=== PATIENT | female | born 1960 | race Caucasian/White ===

== ENCOUNTER 2019-08-31 14:47 | Outpatient (CLI) | payer OTHER ==
[2016-07-13 00:34] VITALS: BP 172/108
--- NOTE | 2019-08-31 16:05 | Diagnostic Imaging Report ---
PATIENT MR#: [id number] PATIENT PATIENT NAME: MOSES MORALES DATE OF : 1960 REFERRING PHYSICIAN: Marcella Belcher EXAM DATE: 08/31/2019 ACCESSION NUMBER: [id number] EXAM DESCRIPTION: C SPINE 4 VIEWS OR MORE HISTORY: CHRONIC BACK/NECK PAIN WITH LEFT SIDED NUMBNESS AND TINGLING COMPARISON: No relevant comparison is available at the time of interpretation. C-SPINE XRAY, 5 views including obliques: Vertebral bodies: Generalized osteopenia. No compression deformities. The dens is intact and the late ral masses are symmetric. Disc spaces: Mild-moderate degenerative disc disease at C3-4, C4-5 and C5-6. Alignment: Normal cervical lordosis without listhesis. Neural foramina: Right neural foraminal stenosis at C3-4 and C4-5. Left neural foraminal stenosis at C4-5 and C5-6. IMPRESSION: 1. Generalized osteopenia without compression fracture. 2. Mild degenerative disc disease at C4-5 and C5-6. 3. Neural foraminal stenosis at C3-4, C4-5 and C5-6, as described above. Read by: Dr. Wesley Sarmiento Transcribed by: Wesley Sarmiento Transcribed Date: 08/31/2019 4:04:17 PM Electronically signed by: Dr. Wesley Sarmiento Date signed: 08/31/2019 4:04:51 PM
--- NOTE | 2019-08-31 16:08 | Diagnostic Imaging Report ---
PATIENT MR#: [id number] PATIENT PATIENT NAME: MOSES MORALES DATE OF : 1960 REFERRING PHYSICIAN: Marcella Belcher EXAM DATE: 08/31/2019 ACCESSION NUMBER: [id number] EXAM DESCRIPTION: T SPINE 3 VIEWS HISTORY: CHRONIC BACK/NECK PAIN WITH LEFT SIDED NUMBNESS AND TINGLING. COMPARISON: No relevant comparison is available at the time of interpretation. T-SPINE XRAY, 3 Views: Vertebral bodies: Generalized osteopenia. No compression deformities. Disc spaces: Moderate thoracic disc spondylosis of the upper and mid thoracic levels. Alignment: Minimal thoracic levocurvature. Normal thoracic kyphosis without listhesis. IMPRESSION: Moderate upper thoracic disc spondylosis. Read by: Dr. Wesley Sarmiento Transcribed by: Wesley Sarmiento Transcribed Date: 08/31/2019 4:07:02 PM Electronically signed by: Dr. Wesley Sarmiento Date signed: 08/31/2019 4:07:48 PM
--- NOTE | 2019-08-31 16:23 | Diagnostic Imaging Report ---
PATIENT MR#: [id number] PATIENT PATIENT NAME: MOSES MORALES DATE OF : 1960 REFERRING PHYSICIAN: Marcella Belcher EXAM DATE: 08/31/2019 ACCESSION NUMBER: [id number] EXAM DESCRIPTION: L SPINE 4 VIEWS CLINICAL HISTORY: CHRONIC BACK/NECK PAIN WITH LEFT SIDED NUMBNESS AND TINGLING COMPARISON: No relevant comparison is available at the time of interpretation. L-SPINE XRAY, 5 views including obliques: Vertebral bodies: No compression deformities. Transitional S1 vertebra. Disc spaces: Mild posterior disc narrowing at L1-2, L2-3 and L3-4. Alignment: Mild lumbar dextrocurvature. Normal lumbar lordosis without listhesis. Facets: Degenerative arthrosis at L4-5 and L5-S1. Large facet osteophyte at L5-S1 on the left. IMPRESSION: 1. Transitional S1 vertebra. 2. Lower lumbar facet arthrosis, most pronounced at L5-S1 on the left, with large osteophyte formatio n, which may produce neural foraminal encroachment. Read by: Dr. Wesley Sarmiento Transcribed by: Wesley Sarmiento Transcribed Date: 08/31/2019 4:22:27 PM Electronically signed by: Dr. Wesley Sarmiento Date signed: 08/31/2019 4:22:27 PM
== END 2019-08-31 14:57 ==
LOC: RAD 14:47
PROVIDERS: ATTEND Nurse Practitioner Family
DX: M54.2 Cervicalgia (principal); M54.5 Low back pain; M54.6 Pain in thoracic spine
CPT/HCPCS: 72050; 72072; 72110

== ENCOUNTER 2019-09-06 13:41 | Outpatient (CLI) | payer OTHER ==
[2016-07-13 00:34] VITALS: BP 172/108
--- NOTE | 2019-09-06 14:49 | Diagnostic Imaging Report ---
PATIENT MR#: [id number] PATIENT PATIENT NAME: MOSES MORALES DATE OF : 1960 REFERRING PHYSICIAN: Marcella Belcher EXAM DATE: 09/06/2019 ACCESSION NUMBER: [id number] EXAM DESCRIPTION: US THYROID SOFT TISS HEAD/NCK Exam: Thyroid ultrasound. History: Hypothyroidism. Real-time grayscale imaging of the thyroid gland is performed. The right lobe measures 3.3 x 1.8 x 1.2 cm. The left lobe measures 3.6 x 1.3 x 1.2 cm. The isthmus measures 1.9 mm in with. Both lobes are heterogeneous in echotexture. Complex nodule in the left lobe measures 9.4 x 4 .8 mm in greatest diameter. Hypoechogenic nodule in the upper pole of the right lobe measures 1.1 cm in length. Impression: Heterogeneous appearing thyroid gland with multiple nodules identified. Read by: Dr. Bo Rokc Transcribed by: Transcribed Date: Electronically signed by: Dr. Bo Rock Date signed: 09/06/2019 2:48:24 PM
== END 2019-09-06 13:51 ==
LOC: RAD 13:41
PROVIDERS: ATTEND Nurse Practitioner Family
DX: E03.9 Hypothyroidism, unspecified (principal)
CPT/HCPCS: 76536

== ENCOUNTER 2019-10-03 13:02 | Outpatient (CLI) | payer OTHER ==
[2016-07-13 00:34] VITALS: BP 172/108
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
== END 2019-10-03 14:02 ==
LOC: OUT 13:02
PROVIDERS: ATTEND Nurse Practitioner Adult Health
DX: M54.2 Cervicalgia (principal); M54.5 Low back pain; M54.6 Pain in thoracic spine
CPT/HCPCS: 99203